=== PATIENT | female | born 1955 | race Caucasian/White ===

== ENCOUNTER → 2020-06-25 14:39 | Outpatient (BNVA) | payer MEDICARE, OTHER, SELFPAY | PROVIDERS: Family Provider Electrodiagnostic Medicine; Visit Provider Nurse Practitioner Family | DX: M17.12 Unilateral primary osteoarthritis, left knee (principal); M25.462 Effusion, left knee; M25.562 Pain in left knee | CPT/HCPCS: 73562 ==